=== PATIENT | male | born 1945 | race Caucasian/White ===

== ENCOUNTER 2017-07-06 14:18 | Emergency (ER) | payer OTHER ==
[~2017-07-06] VITALS: Ht 180.3 cm; Wt 80.5 kg
[2017-07-06 14:21] VITALS: BP 174/85; PULSE 97; RESP 18; TEMP 97.8; O2SAT 96
[2017-07-06] MEDS ORDERED: MAPA500C PO (15:03)
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
--- NOTE | 2017-07-06 16:29 | RADRPT ---
EXAM DATE/TIME: 07/06/2017 16:04 [facility] COMPARISON: No previous studies available for comparison. INDICATIONS : Right knee discomfort, trouble walking. MEDICAL HISTORY : None. SURGICAL HISTORY : None. ENCOUNTER: Initial ACUITY: >1 year PAIN SCORE: 1/10 LOCATION: Right knee joint. FINDINGS: Significant joint space narrowing with subchondral sclerosis and marginal spurring is identified invo lving the medial joint compartment and patellofemoral joint. Bony structures are lies intact. There i s no subacute fracture. Small joint effusion may be present. CONCLUSION: 1. Significant arthropathy involving the medial joint compartment and patellofemoral joint. 2. Minimal joint effusion. 3. No acute bony abnormality. Jorgito Dhillon MD on July 06, 2017 at 16:26 Board Certified Radiologist. This report was verified electronically.
--- NOTE | 2017-07-06 16:30 | RADRPT ---
EXAM DATE/TIME: 07/06/2017 16:09 [facility] COMPARISON: No previous studies available for comparison. INDICATIONS : Left knee discomfort, trouble walking. MEDICAL HISTORY : None. SURGICAL HISTORY : None. ENCOUNTER: Initial ACUITY: >1 year PAIN SCORE: 1/10 LOCATION: Left knee joint. FINDINGS: Significant arthropathy is identified involving the medial joint compartment and patellofemoral joint . There is joint space narrowing, subchondral sclerosis and marginal spurring. Minimal effusion may b e present. Bony structures are intact. CONCLUSION: 1. Significant arthropathy of the medial joint compartment and patellofemoral joint. 2. Minimal joint effusion. 3. No acute bony abnormality. Jorgito Dhillon MD on July 06, 2017 at 16:28 Board Certified Radiologist. This report was verified electronically.
--- NOTE | 2017-07-06 17:35 | RADRPT ---
EXAM DATE/TIME: 07/06/2017 17:01 [facility] COMPARISON: No previous studies available for comparison. INDICATIONS : Bilateral leg weakness. RADIATION DOSE: 56.42 CTDIvol (mGy) MEDICAL HISTORY : Dementia. SURGICAL HISTORY : None. ENCOUNTER: Initial ACUITY: 1 day PAIN SCALE: 0/10 LOCATION: cranial TECHNIQUE: Multiple contiguous axial images were obtained of the head. Using automated exposure control and adj ustment of the mA and/or kV according to patient size, radiation dose was kept as low as reasonably a chievable to obtain optimal diagnostic quality images. DICOM format image data is available electro nically for review and comparison. FINDINGS: There is moderate central and cortical atrophy with dilatation of ventricular and sulcal spaces. The re is no parenchymal hemorrhage, acute infarction or mass lesion identified. Significant hypodensity is present the cerebral white matter. There are no extra-axial fluid collections appreciated. The po sterior fossa is unremarkable with midline fourth ventricle. The portion of the orbits and paranasal sinuses visualized are unremarkable. CONCLUSION: 1. Advanced cerebral white matter disease with diffuse hypodensity and central volume loss characteri stic of chronic microvascular ischemic changes. 2. No evidence of acute infarct, hemorrhage, mass or edema. Jorgito Dhillon MD on July 06, 2017 at 17:30 Board Certified Radiologist. This report was verified electronically.
== END 2017-07-06 18:18 | disposition home or self-care (01) ==
LOC: NEPD 14:18
DX: M19.90 Unspecified osteoarthritis, unspecified site (principal); M25.562 Pain in left knee; M25.561 Pain in right knee; F03.90 Unspecified dementia, unspecified severity, without behavioral disturbance, psychotic disturbance, mood disturbance, and anxiety
CPT/HCPCS: 70450; 73564; 99284

== ENCOUNTER 2017-10-15 10:11 | Emergency (ER) | payer OTHER ==
[~2017-10-15 10:11] MED LIST: MAPA500C PO
[2017-10-15 10:18] VITALS: BP 144/86; PULSE 84; RESP 18; O2SAT 98
[2017-10-15 10:20] VITALS: O2SAT 96
[2017-10-15] MEDS ORDERED: SODIUM CHLORIDE 0.9% FLUSH 10 ML FLUSH IVF PRN (10:30)
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
[2017-10-15 11:03] LABS: AUTOMATED NEUTROPHIL # 2.4 TH/MM3 (1.8-7.7); BASOPHIL % 0.8 % (0.0-2.0); EOSINOPHIL # 0.1 TH/MM3 (0-0.4); EOSINOPHIL % 2.3 % (0.0-4.0); HEMATOCRIT 37.6 % (39.0-51.0); HEMOGLOBIN 13.6 GM/DL (13.0-17.0); LYMPHOCYTE # 2.2 TH/MM3 (1.0-4.8); MEAN CELL VOLUME 95.1 FL (80.0-100.0); MEAN CORPUSCULAR HEMOGLOBIN 34.4 PG (27.0-34.0); MEAN PLATELET VOLUME 7.9 FL (7.0-11.0); MONO % 8.7 % (0.0-8.0); MONOCYTE # 0.5 TH/MM3 (0-0.9); NEUT % 46.2 % (16.0-70.0); PLATELET COUNT 250 TH/MM3 (150-450); RED BLOOD COUNT 3.95 MIL/MM3 (4.50-5.90); RED CELL DISTRIBUTION WIDTH 14.5 % (11.6-17.2); WHITE BLOOD COUNT 5.3 TH/MM3 (4.0-11.0)
[2017-10-15 11:12] LABS: MEAN CORPUSCULAR HGB CONC 36.2 % (32.0-36.0)
[2017-10-15 11:13] LABS: INTERNATIONAL NORMALIZED RATIO 1.1 RATIO; PROTHROMBIN TIME - PATIENT 10.9 SEC (9.8-11.6)
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
[2017-10-15 11:43] LABS: ALT (GPT) 18 U/L (12-78); AST (GOT) 12 U/L (15-37); BICARBONATE 29.9 MEQ/L (21.0-32.0); BLOOD UREA NITROGEN 10 MG/DL (7-18); CALCIUM 9.4 MG/DL (8.5-10.1); CHLORIDE 106 MEQ/L (98-107); CREATININE 1.22 MG/DL (0.60-1.30); GLOMERULAR FILTRATION RATE 58 ML/MIN (>89); GLUCOSE,RANDOM 103 MG/DL (74-106); MAGNESIUM 1.9 MG/DL (1.5-2.5); SODIUM (NA) 142 MEQ/L (136-145)
[2017-10-15 11:47] LABS: ALKALINE PHOSPHATASE 59 U/L (45-117); TOTAL BILIRUBIN ADULT 0.4 MG/DL (0.2-1.0); TOTAL PROTEIN 7.3 GM/DL (6.4-8.2); TROPONIN I LESS THAN 0.02 NG/ML (0.02-0.05)
[2017-10-15 11:51] LABS: BILIRUBIN, URINE NEG (NEG); BLOOD, URINE NEG (NEG); GLUCOSE,URINE NEG (NEG); KETONE, URINE NEG (NEG); MUCUS URINE FEW /lpf (OCC); NITRITE,URINE NEG (NEG); URINE COLOR YELLOW (YELLW/STRAW); URINE LEUKOCYTE ESTERASE NEG (NEG)
--- NOTE | 2017-10-17 00:35 | EKG ---
Date Performed: 10/15/2017 Time Performed: 10:37:38 PTAGE: 71 years EKG: Sinus rhythm WITH MARKED SINUS ARRHYTHMIA WITH FIRST DEGREE AV BLOCK MODERATE INTRAVENTRICULAR CONDUCTION DELAY A BNORMAL ECG NO PREVIOUS TRACING DOCTOR: Eli Santiago Interpretating Date/Time 10/17/2017 00:20:29
== END 2017-10-15 13:08 | disposition home or self-care (01) ==
LOC: NEPE 10:11
DX: R26.81 Unsteadiness on feet (principal); R53.1 Weakness; I49.8 Other specified cardiac arrhythmias; I44.0 Atrioventricular block, first degree; F03.90 Unspecified dementia, unspecified severity, without behavioral disturbance, psychotic disturbance, mood disturbance, and anxiety; M19.90 Unspecified osteoarthritis, unspecified site
CPT/HCPCS: 70450; 80053; 81001; 83735; 84484; 85025; 85610; 85730; 93005